=== PATIENT | female | born 1985 ===

== ENCOUNTER 2023-05-27 16:05 | Outpatient (CLI) | payer OTHER | END 2023-05-27 17:33 | disposition home or self-care (01) | LOC: PRENATAL 16:05 | PROVIDERS: ATTEND Obstetrics & Gynecology Maternal & Fetal Medicine | DX: O35.3XX0 Maternal care for (suspected) damage to fetus from viral disease in mother, not applicable or unspecified (principal); O09.529 Supervision of elderly multigravida, unspecified trimester; O44.00 Complete placenta previa NOS or without hemorrhage, unspecified trimester; O99.210 Obesity complicating pregnancy, unspecified trimester; Z3A.20 20 weeks gestation of pregnancy ==

== ENCOUNTER 2023-07-09 13:46 | Outpatient (CLI) | payer OTHER | END 2023-07-09 17:05 | disposition home or self-care (01) | LOC: PRENATAL 13:46 | PROVIDERS: ATTEND Obstetrics & Gynecology Maternal & Fetal Medicine | DX: O09.529 Supervision of elderly multigravida, unspecified trimester (principal); O99.210 Obesity complicating pregnancy, unspecified trimester; O26.879 Cervical shortening, unspecified trimester; Z3A.36 36 weeks gestation of pregnancy ==

== ENCOUNTER 2023-09-28 12:30 | Inpatient (IN) | payer OTHER ==
[~2023-09-28] VITALS: Ht 175.3 cm; Wt 3.2 kg
[2023-09-28 13:23] LABS: PH,URINE 6.5 (5.0-8.0); URINE APPEARANCE Clear; URINE BILIRRUBIN Negative (NEGATIVE); URINE BLOOD NHT; URINE COLOR Yellow; URINE GLUCOSE Negative (NEGATIVE); URINE LEUKOCYTE Trace; URINE NITRATE Negative; URINE PROTEIN Negative (NEGATIVE)
[2023-09-28 13:27] LABS: URINE BACTERIA 30.2 uL (0.0-1933); URINE EPITHELIAL CELLS 10.3 uL (0.0-38.8); URINE RBC 39.2 uL (0.0-20.8); URINE WBC 6.7 uL (0.0-23.2)
[2023-09-28] MEDS ORDERED: PRENATAL TABLE1 EAC1 PO (13:35)
[2023-09-28 13:54] LABS: HEMATOCRIT 36.7 % (36.0-45.00); MEAN CELL VOLUME 90.5 fL (80.00-100.00); MEAN CORPUSCULAR HEMOGLOBIN 29.7 pg (27.00-32.0); MEAN CORPUSCULAR HGB CONC 32.8 g/dl (32.0-36.0); PLATELET COUNT 243 K/uL (150-450); RED BLOOD COUNT 4.06 M/uL (4.00-6.00); RED CELL DISTRIBUTION WIDTH 14.9 % (11.5-14.5)
[2023-09-28 13:57] LABS: INR 0.98; PARTIAL THROMBOPLASTIN TIME 28.2 SECONDS (22.0-34.0); PROTHROMBIN TIME 10.3 SECONDS (9.0-11.5)
== END 2023-10-01 14:26 | disposition home or self-care (01) | DRG 788 ==
LOC: OBS/DEL 12:30 → OB/GYN 12:48 → LDR 12:48 → OB/GYN 17:47
PROVIDERS: ADMIT Obstetrics & Gynecology Obstetrics; ATTEND Obstetrics & Gynecology Obstetrics
PROC: 4A1HXCZ Monitoring of Products of Conception, Cardiac Rate, External Approach (ICD-10-PCS; 2023-09-28)
PROC: 10D00Z1 Extraction of Products of Conception, Low, Open Approach (ICD-10-PCS; principal; 2023-09-28 15:00)
DX: O32.1XX0 Maternal care for breech presentation, not applicable or unspecified (principal); Z3A.38 38 weeks gestation of pregnancy; Z37.0 Single live birth; Z20.822 Contact with and (suspected) exposure to COVID-19

== ENCOUNTER 2025-09-29 12:33 | Outpatient (CLI) | payer OTHER ==
[~2025-09-29 12:33] MED LIST: PRENATAL TABLE1 EAC1 PO
== END 2025-09-29 12:36 | disposition home or self-care (01) ==
LOC: PRENATAL 12:33
PROVIDERS: ATTEND Obstetrics & Gynecology Maternal & Fetal Medicine
DX: O26.842 Uterine size-date discrepancy, second trimester (principal); Z14.8 Genetic carrier of other disease; Z36.0 Encounter for antenatal screening for chromosomal anomalies; O99.212 Obesity complicating pregnancy, second trimester

== ENCOUNTER → 2025-11-04 07:35 | Outpatient (CLI) | payer OTHER | END | disposition home or self-care (01) | LOC: PRENATAL 07:35 | PROVIDERS: ATTEND Obstetrics & Gynecology Maternal & Fetal Medicine | DX: O44.02 Complete placenta previa NOS or without hemorrhage, second trimester (principal); O09.522 Supervision of elderly multigravida, second trimester; O99.212 Obesity complicating pregnancy, second trimester; O34.219 Maternal care for unspecified type scar from previous cesarean delivery; Z3A.22 22 weeks gestation of pregnancy ==